=== PATIENT | male | born 1990 | race Hispanic/Latino ===

== ENCOUNTER 2018-05-11 15:36 | Emergency (ER) | payer SELFPAY ==
[~2018-05-11] VITALS: Ht 175.3 cm; Wt 86.2 kg
--- NOTE | 2018-05-11 16:50 | Diagnostic Imaging Report ---
EXAMINATION: CHEST 2 VIEWS INDICATION: \S\cough, CP \[id number] \[id number] COMPARISON: None FINDINGS: PA and lateral views TUBES and LINES: None. LUNGS: Lungs are well inflated. Lungs are clear. There is no evidence of pneumonia or pulmonary edema. PLEURA: No pleural effusion or pneumothorax. HEART AND MEDIASTINUM: The cardiomediastinal silhouette is unremarkable. BONES AND SOFT TISSUES: No acute osseous lesion. Soft tissues are unremarkable. UPPER ABDOMEN: No free air under the diaphragm. IMPRESSION: No acute thoracic abnormality. Signed by: Dr. Sonya Mar M.D. on 05/11/2018 4:47 PM
[2018-05-11 18:15] VITALS: BP 172/94
== END 2018-05-11 18:25 | disposition home or self-care (01) ==
LOC: ER 15:36
DX: R07.89 Other chest pain (principal); R06.00 Dyspnea, unspecified; J20.9 Acute bronchitis, unspecified
CPT/HCPCS: 71046; 93005; 99283